=== PATIENT | female | born 1960 | race Two or more races ===

== ENCOUNTER 2018-07-12 05:55 | Day surgery (SDC) | payer OTHER ==
[~2018-07-12 05:55] MED LIST: CATAPRES0.1 MG PO; LOPRESSOR25 MG PO
[2018-07-12] MEDS ORDERED: CODE1TAB37 PO (13:30)
[2018-07-12] MEDS ORDERED: DOXYCYCLINE HY100 MG PO (13:30)
== END 2018-07-12 17:00 | disposition home or self-care (01) ==
LOC: CIR.AMB 05:55
DX: D25.0 Submucous leiomyoma of uterus (principal); N84.0 Polyp of corpus uteri

== ENCOUNTER 2019-06-20 07:30 | Inpatient (IN) | payer OTHER ==
[~2019-06-20] VITALS: Ht 160 cm; Wt 90.7 kg
[~2019-06-20 07:30] MED LIST changes: +CODE1TAB37 PO; +DOXYCYCLINE HY100 MG PO
[2019-07-08] MEDS ORDERED: NAPR500T14 PO (08:59)
[2019-07-08] MEDS ORDERED: TYLENOL #3 PO (08:59)
== END 2019-07-08 13:40 | disposition home or self-care (01) | DRG 742 ==
LOC: O/R 07-04 05:23 → SURG 07-04 05:23 → OB/GYN 07-04 07:00 → SURG 07-04 18:09
PROVIDERS: ADMIT Obstetrics & Gynecology
PROC: 0UT70ZZ Resection of Bilateral Fallopian Tubes, Open Approach (ICD-10-PCS; 2019-07-04)
PROC: 0TQB8ZZ Repair Bladder, Via Natural or Artificial Opening Endoscopic (ICD-10-PCS; 2019-07-04)
PROC: 0T778DZ Dilation of Left Ureter with Intraluminal Device, Via Natural or Artificial Opening Endoscopic (ICD-10-PCS; 2019-07-04)
PROC: 0UT90ZZ Resection of Uterus, Open Approach (ICD-10-PCS; principal; 2019-07-04 07:00)
PROC: 0UT20ZZ Resection of Bilateral Ovaries, Open Approach (ICD-10-PCS; 2019-07-04 07:00)
DX: D25.1 Intramural leiomyoma of uterus (principal); N99.72 Accidental puncture and laceration of a genitourinary system organ or structure during other procedure; D25.0 Submucous leiomyoma of uterus; N80.0 Endometriosis of uterus; N13.5 Crossing vessel and stricture of ureter without hydronephrosis; G89.18 Other acute postprocedural pain; N84.0 Polyp of corpus uteri

== ENCOUNTER 2019-07-15 12:08 | Emergency (ER) | payer OTHER ==
[~2019-07-15] VITALS: Ht 160 cm; Wt 89.8 kg
== END 2019-07-15 18:25 | disposition home or self-care (01) ==
LOC: ER 12:08
DX: R42 Dizziness and giddiness (principal); Z98.890 Other specified postprocedural states

== ENCOUNTER → 2019-07-15 | Outpatient (CLI) | payer OTHER ==
[~2019-07-15] MED LIST changes: +NAPR500T14 PO; +TYLENOL #3 PO
== END | disposition home or self-care (01) ==
LOC: TOM 09:15
DX: D21.9 Benign neoplasm of connective and other soft tissue, unspecified (principal)

== ENCOUNTER 2024-08-12 14:27 | Emergency (ER) | payer OTHER ==
[~2024-08-12] VITALS: Ht 160 cm; Wt 93.0 kg
[2024-08-12] MEDS ORDERED: FAMOTIDINE/PF 20 MG in 0.9 % SODIUM CHLORIDE 8 ML IV PUSH STA (16:31)
[2024-08-12] MEDS ORDERED: METRONIDAZOLE/SODIUM CHLORIDE 500 MG/100 ML PIGGYBACK IV ONE ×2 (16:40→16:45)
[2024-08-12] MEDS ORDERED: FAMOTIDINE/PF 20 MG/2 ML VIAL ONE (16:40)
[2024-08-12] MEDS ORDERED: ONDANSETRON HCL 2 MG/ML VIAL ONE (16:40)
[2024-08-12] MEDS ORDERED: 0.9 % SODIUM CHLORIDE 1,000 ML IV SCH (16:45)
[2024-08-12] MEDS ORDERED: ONDANSETRON HCL 2 MG/ML VIAL IV ONE (16:45)
[2024-08-12 17:02] LABS: HEMATOCRIT 43.6 % (36.0-45.00); HEMOGLOBIN 15.3 g/dL (12.0-15.00); MEAN CELL VOLUME 89.5 fL (80.00-100.00); MEAN CORPUSCULAR HEMOGLOBIN 31.5 pg (27.00-32.0); MEAN CORPUSCULAR HGB CONC 35.2 g/dl (32.0-36.0); PLATELET COUNT 325 K/uL (150-450); RED BLOOD COUNT 4.87 M/uL (4.00-6.00); RED CELL DISTRIBUTION WIDTH 13.9 % (11.5-14.5)
[2024-08-12 17:28] LABS: ALBUMIN 3.4 gm/dL (3.4-5.0); BILIRUBIN TOTAL 0.35 mg/dL (0.3-1.2); CALCIUM 8.8 mg/dL (8.5-10.1); CREATININE SERUM 0.68 mg/dL (0.55-1.02); GFR 87.39; GLOBULINA 4.2 G/DL (2.4-3.5); POTASSIUM 3.86 mEq/L (3.5-5.1); TOTAL PROTEIN 7.6 gm/dL (6.4-8.2)
[2024-08-12] MEDS ORDERED: KETOROLAC TROMETHAMINE 30 MG VIAL IV ONE (20:15)
[2024-08-12] MEDS ORDERED: KETOROLAC TROMETHAMINE 30 MG VIAL ONE (20:27)
[2024-08-12] MEDS ORDERED: PEPCID AC20 MG PO (21:13)
[2024-08-12] MEDS ORDERED: LEVSIN/SL0.125 MG SL (21:13)
[2024-08-12] MEDS ORDERED: INTESTINEX680 M1 PO (21:13)
== END 2024-08-12 22:00 | disposition home or self-care (01) ==
LOC: ER 14:30
PROVIDERS: General Practice
DX: K52.9 Noninfective gastroenteritis and colitis, unspecified (principal); R11.0 Nausea; I10 Essential (primary) hypertension; Z88.1 Allergy status to other antibiotic agents